=== PATIENT | male | born 1985 | race African-American/Black ===

== ENCOUNTER 2016-11-03 16:42 | Emergency (ER) | payer SELFPAY ==
[~2016-11-03] VITALS: Ht 172.7 cm; Wt 66.8 kg
[~2016-11-03 16:42] MED LIST: ZOFRAN ODT8 MG PO
[2016-11-03 16:43] VITALS: BP 121/68; PULSE 95; TEMP 97.8
[2016-11-03 17:38] LABS: INFLUENZA B NEGATIVE
== END 2016-11-03 18:10 | disposition home or self-care (01) ==
LOC: COL.ER 16:42
PROVIDERS: Physician Assistant
DX: J06.9 Acute upper respiratory infection, unspecified (principal)

== ENCOUNTER 2017-02-06 16:03 | Emergency (ER) | payer SELFPAY ==
[~2017-02-06] VITALS: Ht 180.3 cm; Wt 59.1 kg
[2017-02-06 16:09] VITALS: TEMP 98.7
[2017-02-06] MEDS ORDERED: ZOFRAN 4MG T4 MG/TAB PO (16:51)
[2017-02-06 16:59] LABS: BASO % 0.6 % (0.0-2.0); EOS # 0.1 (0.0-0.7); EOS % 1.8 % (0-4.0); GRAN # 1.3 (1.4-6.5); GRAN % 40.1 % (42.2-75.2); HEMOGLOBIN 13.6 g/dl (13.5-18.0); LYMPH # 1.6 (1.2-3.4); MEAN CELL VOLUME 82 fl (80.0-100.0); MEAN CORPUSCULAR HEMOGLOBIN 30 pg (27.0-31.0); MEAN CORPUSCULAR HGB CONC 37 g/dl (33.0-37.0); MEAN PLATELET VOLUME 10.6 fl (7.4-10.4); MONO # 0.4 (0.1-0.6); MONO % 10.5 % (1.7-9.3); PLATELET COUNT 196 K/mm3 (130-400); RED BLOOD COUNT 4.47 M/mm3 (4.20-5.60); REDCELL DISTRIBUTION WIDTH-CV 13.4 % (11.5-14.5); WHITE BLOOD COUNT 3.3 K/mm3 (4.8-10.8)
[2017-02-06 17:03] LABS: HEMATOCRIT 36.5 % (42.0-52.0)
[2017-02-06 17:11] LABS: ADJUSTED CALCIUM 8.8 mg/dL (8.4-10.2); ALBUMIN 4.8 gm/dL (3.5-5.0); BILIRUBIN,TOTAL 0.9 mg/dL (0.0-1.0); CALCIUM 9.4 mg/dL (8.4-10.2); CREATININE, serum 0.92 mg/dL (0.66-1.25); POTASSIUM 3.8 mmol/L (3.4-5.0); TOTAL PROTEIN 7.7 gm/dL (6.4-8.2)
[2017-02-06 17:18] LABS: PH 5 (5-8); SQUAMOUS EPITHELIAL None Seen /hpf; URINE APPEARANCE Clear; URINE BACTERIA None Seen /hpf; URINE BILIRUBIN Negative (NEGATIVE); URINE BLOOD Negative (NEGATIVE); URINE COLOR Yellow; URINE GLUCOSE Negative (NEGATIVE); URINE KETONE Negative (NEGATIVE); URINE RBC 0-2 /hpf; URINE UROBILINOGEN Negative (NEGATIVE); URINE WBC 0-2 /hpf
[2017-02-06 17:19] LABS: INFLUENZA B NEGATIVE
[2017-02-06 18:27] VITALS: BP 114/63; PULSE 68
== END 2017-02-06 18:28 | disposition home or self-care (01) ==
LOC: COL.ER 16:03
PROVIDERS: Nurse Practitioner
DX: A08.4 Viral intestinal infection, unspecified (principal)
CPT/HCPCS: J2405; J7030

== ENCOUNTER 2017-10-31 11:07 | Emergency (ER) | payer SELFPAY ==
[~2017-10-31] VITALS: Ht 177.8 cm; Wt 68.2 kg
[~2017-10-31 11:07] MED LIST changes: +ZOFRAN 4MG T4 MG/TAB PO
[2017-10-31 11:15] VITALS: BP 129/82
[2017-10-31 13:39] LABS: INFLUENZA A NEGATIVE; INFLUENZA B NEGATIVE
[2017-10-31 14:34] VITALS: PULSE 72; TEMP 98.9
== END 2017-10-31 14:33 | disposition home or self-care (01) ==
LOC: COL.ER 11:07
PROVIDERS: Physician Assistant
DX: J11.1 Influenza due to unidentified influenza virus with other respiratory manifestations (principal)

== ENCOUNTER 2018-10-20 11:39 | Emergency (ER) | payer SELFPAY ==
[~2018-10-20] VITALS: Ht 177.8 cm; Wt 77.3 kg
[2018-10-20 11:46] VITALS: BP 138/66; PULSE 67; TEMP 97.5
== END 2018-10-20 13:03 | disposition left against medical advice (07) ==
LOC: COL.ER 11:39
DX: M25.512 Pain in left shoulder (principal)

== ENCOUNTER 2018-10-22 10:41 | Emergency (ER) | payer SELFPAY ==
[~2018-10-22] VITALS: Ht 177.8 cm; Wt 79.5 kg
[2018-10-22 10:47] VITALS: BP 147/73; PULSE 79; TEMP 98.5
[2018-10-22] MEDS ORDERED: PREDNISONE20 MG PO (11:02)
== END 2018-10-22 11:13 | disposition home or self-care (01) ==
LOC: COL.ER 10:41
DX: M25.511 Pain in right shoulder (principal); M25.512 Pain in left shoulder; F17.290 Nicotine dependence, other tobacco product, uncomplicated

== ENCOUNTER 2020-12-06 04:23 | Emergency (ER) | payer MEDICAID ==
[~2020-12-06] VITALS: Ht 177.8 cm; Wt 71.4 kg
[~2020-12-06 04:23] MED LIST changes: +PREDNISONE20 MG PO
[2020-12-06 04:29] VITALS: BP 132/80; PULSE 77; TEMP 98.2
[2020-12-06 04:58] LABS: BASO % 0.8 % (0.0-2.0); EOS # 0.3 (0.0-0.7); EOS % 6.2 % (0-4.0); GRAN # 1.7 (1.4-6.5); GRAN % 34.6 % (42.2-75.2); HEMATOCRIT 39.2 % (42.0-52.0); HEMOGLOBIN 14.5 g/dl (13.5-18.0); LYMPH # 2.4 (1.2-3.4); LYMPH % 47.4 % (20.0-51.0); MEAN CELL VOLUME 83 fl (80.0-100.0); MEAN CORPUSCULAR HEMOGLOBIN 31 pg (27.0-31.0); MEAN CORPUSCULAR HGB CONC 37 g/dl (33.0-37.0); MEAN PLATELET VOLUME 10.2 fl (7.4-10.4); MONO # 0.5 (0.1-0.6); MONO % 10.8 % (1.7-9.3); PLATELET COUNT 234 K/mm3 (130-400); RED BLOOD COUNT 4.74 M/mm3 (4.20-5.60); REDCELL DISTRIBUTION WIDTH-CV 13.3 % (11.5-14.5)
[2020-12-06 05:10] LABS: ANION GAP 9 mmol/L (7-16); BLOOD UREA NITROGEN 14 mg/dL (9-20); CALCIUM 9.3 mg/dL (8.4-10.2); CARBON DIOXIDE 25 mmol/L (22-30); CHLORIDE 104 mmol/L (98-107); CREATININE, serum 1.04 (0.66-1.25); GLUCOSE 98 mg/dL (74-106); POTASSIUM 4.1 mmol/L (3.4-5.0); SODIUM 138 mmol/L (137-145)
[2020-12-06 05:28] LABS: TROPONIN-I < 0.012 ng/mL (0.000-0.035)
== END 2020-12-06 06:15 | disposition home or self-care (01) ==
LOC: COL.ER 04:23
PROVIDERS: Emergency Medicine
DX: F41.9 Anxiety disorder, unspecified (principal); Z79.52 Long term (current) use of systemic steroids
CPT/HCPCS: J2060